=== PATIENT | female | born 1990 | race Caucasian/White ===

== ENCOUNTER 2019-06-26 19:20 | Emergency (ER) | payer BC, OTHER ==
[~2019-06-26] VITALS: Ht 157.5 cm; Wt 45.3 kg
--- NOTE | 2019-06-26 21:18 | NUR ---
pt to room from lobby
--- NOTE | 2019-06-26 21:35 | NUR ---
pt ambulates to room with steady gait at this time.
[2019-06-26 21:37] LABS: BASOPHILS # (AUTO) 0.03 x10^3/uL (0-0.1); BASOPHILS % (AUTO) 0 % (0-1); EOSINOPHILS # (AUTO) 0.13 x10^3/uL (0-0.4); EOSINOPHILS % (AUTO) 1 % (1-7); LYMPHOCYTES # (AUTO) 1.04 x10^3/uL (1-3.4); LYMPHOCYTES % (AUTO) 11 % (22-44); MD NO; MEAN CORPUSCULAR HEMOGLOBIN 31.3 pg (27.0-34.8); MEAN CORPUSCULAR VOLUME 94.7 fL (80-100); MEAN PLATELET VOLUME 8.1 fL (7.4-10.4); MONOCYTES # (AUTO) 0.42 x10^3/uL (0.2-0.8); MONOCYTES % (AUTO) 4 % (2-9); NEUTROPHILS # (AUTO) 8.17 x10^3/uL (1.8-6.8); NEUTROPHILS % (AUTO) 84 % (42-75); PLATELET COUNT 241 x10^3/uL (130-400); RED BLOOD COUNT 4.72 x10^6/uL (3.82-5.3); RED CELL DISTRIBUTION WIDTH 13.6 % (9.6-15.2)
[2019-06-26 21:45] LABS: ALANINE AMINOTRANSFERASE 36 U/L (12-78); ALBUMIN 4.1 g/dL (3.4-5.0); ANION GAP 6 mmol/L (5-15); CHLORIDE 109 mmol/L (98-107); CREATININE 0.71 mg/dL (0.55-1.02)
[2019-06-26 21:50] LABS: ALKALINE PHOSPHATASE 46 U/L (45-117); BILIRUBIN,TOTAL 0.5 mg/dL (0.2-1.0); TOTAL PROTEIN 7.6 g/dL (6.4-8.2)
--- NOTE | 2019-06-26 21:53 | NUR ---
PT TO US AT THIS TIME VIA [facility].
[2019-06-26] MEDS ORDERED: ONDANSETRON ODT 4 MG PO ONE (22:00)
[2019-06-26] MEDS ORDERED: MAALOX/HYOSCYAMINE/LIDOCAINE 45 ML BTL PO ONE (22:00)
[2019-06-26] MEDS ORDERED: ONDANSETRON ODT 4 MG ONE (22:20)
[2019-06-26] MEDS ORDERED: MAALOX/HYOSCYAMINE/LIDOCAINE 45 ML BTL ONE (22:20)
--- NOTE | 2019-06-26 22:43 | NUR ---
URINE COLLECTED AND SENT TO LAB AT THIS TIME.
[2019-06-26 22:49] LABS: MICROSCOPIC NOT IND
[2019-06-26 23:00] LABS: CULTURE INDICATED? NO
[2019-06-27] MEDS ORDERED: ONDANSETRON 2MG/ML, 2ML IVPush ONE
[2019-06-27] MEDS ORDERED: MORPHINE SULFATE 4 MG/ML, 1ML IVPush PRN
[2019-06-27] MEDS ORDERED: ONDANSETRON 2MG/ML, 2ML ONE (00:08)
[2019-06-27] MEDS ORDERED: MORPHINE SULFATE 4 MG/ML, 1ML ONE (00:08)
--- NOTE | 2019-06-27 00:18 | NUR ---
PT MEDICATED FOR PAIN PER SEP. CT CALLED TO TAKE PT AT THIS TIME.
[2019-06-27] MEDS ORDERED: OMNIPAQUE 350 MG/ML, 100ML BOTTLE ONE (00:28)
--- NOTE | 2019-06-27 00:28 | NUR ---
PT TO CT VIA [facility] AT THIS TIME.
--- NOTE | 2019-06-27 00:51 | NUR ---
RECEIVED REPORT FROM CLARITZA MORA TO ASSUME CARE OF PT. AT THIS TIME. AWAITING CT READ.
[2019-06-27] MEDS ORDERED: HYDROcodone/APAP 5/325 TABLET PO ONE (01:30)
[2019-06-27 02:41] VITALS: BP 116/71
== END 2019-06-27 02:52 | disposition home or self-care (01) ==
LOC: ED 23:43
DX: R10.84 Generalized abdominal pain (principal); F17.200 Nicotine dependence, unspecified, uncomplicated
CPT/HCPCS: 36415; 74177; 76700; 80053; 81003; 83690; 84703; 85025; 96374; 99284; J2405; Q0162; Q9967